=== PATIENT | female | born 1995 | race Asian ===

== ENCOUNTER 2019-06-12 04:48 | Emergency (ER) | payer SELFPAY ==
--- NOTE | 2019-06-12 06:07 | ED ---
Skin Complaint - HPI Summary HPI Summary: This pt is a 24 Y/O F presenting to [facility] with a CC of an allergic reaction that started between 0400 and 0500 06/12/19. She had a generalized burning sensation and was unable to determine a cause of the rash. She states that she works at [employer]. She denies eating anything new, fevers, chills, N/V, SOB, CP, and headaches. She states that the hives encompassed all of her body. She denies any pain associated with the hives. She states that she was using new laundry detergent today but states that she had a similar symptomology on but states that the episode was only 2 hours and she did not think much of it. She denies any pertinent PMHx and any aggravating or alleviating factors. - History of Current Complaint Chief Complaint: EDAllergicReaction Time Seen by Provider: 06/12/19 05:48 Stated Complaint: ALLERGIES PER PT Hx Obtained From: Patient Onset/Duration: Started Hours Ago - 4-5, Still Present Skin Exposure Onset/Duration: Hours Ago - 4-5 Timing: Constant Current Severity: None Pain Intensity: 0 Pain Scale Used: 0-10 Numeric Skin Location: Diffuse Character: Hives Aggravating Symptom(s): Nothing Alleviating Symptom(s): Nothing Associated Signs & Symptoms: Negative - fevers, chills, N/V, SOB, CP, and headaches - Allergy/Home Medications Allergies/Adverse Reactions: Allergies Allergy/AdvReac Type Severity Reaction Status Date / Time No Known Allergies Allergy Verified 06/12/19 04:50 Home Medications: Home Medications NK [No Home Medications Reported] 06/12/19 [History Confirmed 06/12/19] PMH/Surg Hx/FS Hx/Imm Hx Previously Healthy: Yes Endocrine/Hematology History: Denies: Hx Diabetes Cardiovascular History: Denies: Hx Hypertension Respiratory History: Denies: Hx Asthma - Surgical History Surgical History: None - Immunization History Immunizations Up to Date: No Infectious Disease History: No Infectious Disease History: Denies: Traveled Outside the [place] in Last 30 Days - Family History Known Family History: Negative: Cardiac Disease, Hypertension, Diabetes - Social History Occupation: Employed Part-time Lives: With Family Alcohol Use: None Hx Substance Use: No Substance Use Type: Reports: None Hx Tobacco Use: No Smoking Status (MU): Never Smoked Tobacco Household Exposure: No Review of Systems Negative: Fever, Chills Negative: Chest Pain Negative: Shortness Of Breath Negative: Vomiting, Nausea Positive: Rash - hives Negative: Headache All Other Systems Reviewed And Are Negative: Yes Physical Exam - Summary Physical Exam Summary: General: Well-developed, Well-nourished female. No acute distress. HEENT: Normocephalic, Atraumatic. Eyes: Conjuctiva normal, PERRL. Ears: TMs within normal limits. Nares: (-) discharge, (-) erythema. Oropharynx: Clear, mucous membranes moist, (-) exudates. Neck: Soft, FROM, (-) lymphadenopathy, (-) thyromegaly, (-) JVD. Cardiovascular: Normal sinus rhythm, (-) murmur. Lungs: Clear to auscultation bilaterally (-) wheezes, (-) rales, (-) rhonchi. Abdomen: Soft, non-tender, non-distended, (-) organomegaly, normal bowel sounds. Back: (-) CVA tenderness Extremities: No edema. Skin: Warm, dry, (-) rash. Neuro: Alert and oriented x3, no focal deficits. Psychiatric: Mood normal, affect normal. Triage Information Reviewed: Yes Vital Signs On Initial Exam: Initial Vitals Temp Pulse Resp BP Pulse Ox 98.2 F 74 16 112/72 98 06/12/19 04:51 06/12/19 04:51 06/12/19 04:51 06/12/19 04:51 06/12/19 04:51 Vital Signs Reviewed: Yes Procedures - Sedation Patient Received Moderate/Deep Sedation with Procedure: No Diagnostics - Vital Signs Vital Signs Temp Pulse Resp BP Pulse Ox 06/12/19 04:51 98.2 F 74 16 112/72 98 - Laboratory Lab Statement: Any lab studies that have been ordered have been reviewed, and results considered in the medical decision making process. Course/Dx - Course Course Of Treatment: 24-year-old female with itching and hives. Unknown etiology. Patient unable to identify any new products prior to the itching. May be laundry detergent. Advised her to evaluate her itching and try to identify the cause. Benadryl given. May take every 6 hours. Follow-up with PCP. Follow-up sooner for any worsening symptoms. - Diagnoses Provider Diagnoses: Allergic reaction Discharge ED - Sign-Out/Discharge Documenting (check all that apply): Patient Departure - discharge - Discharge Plan Condition: Stable Disposition: HOME Patient Education Materials: Urticaria (ED), Allergies (ED) Referrals: [facility] [Outside] - 2 Days Additional Instructions: PLEASE FOLLOW UP WITH THE [facility] IN 1-3 DAYS AND RETURN TO THE EMERGENCY DEPARTMENT FOR ANY NEW OR WORSENING SYMPTOMS. Take benadryl if the episode happens again. - Billing Disposition and Condition Condition: STABLE Disposition: Home - Attestation Statements Document Initiated by Scribe: Yes Documenting Scribe: Dwain Hutchinson Provider For Whom Scribe is Documenting (Include Credential): Veronica Jenkins MD Scribe Attestation: Dwain Freire, scribed for Veronica Jenkins MD on 06/12/19 at 0633. Scribe Documentation Reviewed: Yes Provider Attestation: The documentation as recorded by the Dwain munoz accurately reflects the service I personally performed and the decisions made by Veronica hooper MD Status of Scribe Document: Viewed
[2019-06-12] MEDS ORDERED: diPHENhydraMINE PO* 50 MG PO ONE (06:14)
[2019-06-12 06:46] VITALS: BP 107/66
== END 2019-06-12 06:34 | disposition home or self-care (01) ==
LOC: ED 04:48
DX: T78.40XA Allergy, unspecified, initial encounter (principal); X58.XXXA Exposure to other specified factors, initial encounter; L50.9 Urticaria, unspecified
CPT/HCPCS: 99282; A9270-GY

== ENCOUNTER 2019-06-14 09:47 | Emergency (ER) | payer SELFPAY ==
[2019-06-14 09:51] VITALS: BP 120/70
--- NOTE | 2019-06-14 10:16 | ED ---
Skin Complaint - HPI Summary HPI Summary: This patient is 24 year old female presenting to [facility] with a chief complaint of hives since 4 days ago. She states they have been intermittent and diffusely spread over her body. She denies any abdominal pain, n/v/d, SOB, or cough. She states today they are on her ears. She was seen in the ER on Friday for the same and has been taking benadryl pills and cream without relief. - History of Current Complaint Chief Complaint: EDRashSkinAbscess Time Seen by Provider: 06/14/19 09:58 Stated Complaint: RASH Hx Obtained From: Patient Onset/Duration: Started Days Ago Timing: Lasting Days Pain Intensity: 2 Pain Scale Used: 0-10 Numeric Skin Location: Diffuse, Ear Character: Hives - Allergy/Home Medications Allergies/Adverse Reactions: Allergies Allergy/AdvReac Type Severity Reaction Status Date / Time No Known Allergies Allergy Verified 06/14/19 09:52 PMH/Surg Hx/FS Hx/Imm Hx Endocrine/Hematology History: Denies: Hx Diabetes Cardiovascular History: Denies: Hx Hypertension Respiratory History: Denies: Hx Asthma Infectious Disease History: No Infectious Disease History: Denies: Traveled Outside the [place] in Last 30 Days - Family History Known Family History: Negative: Cardiac Disease, Hypertension, Diabetes - Social History Alcohol Use: None Hx Substance Use: No Substance Use Type: Reports: None Hx Tobacco Use: No Smoking Status (MU): Never Smoked Tobacco Review of Systems Negative: Fever Positive: Rash - Hives All Other Systems Reviewed And Are Negative: Yes Physical Exam - Summary Physical Exam Summary: Appearance: Well-appearing, Well-nourished, lying in bed comfortably Skin: Warm, dry, Urticharea. Only one lesion present over the right ear which is typical red raised urticarial region. Eyes: sclera anicteric, no conjunctival pallor ENT: mucous membranes moist, pharynx appears normal Neck: Supple, nontender Respiratory: Clear to auscultation, no signs of respiratory distress Cardiovascular: Normal S1, S2. No murmurs. Normal distal pulses in tibial and radial bilaterally. Abdomen: Soft, nontender, normal active bowel sounds present Musculoskeletal: Normal, Strength/ROM Intact Neurological: A&Ox3, awake and alert, mentation is normal, speech is fluent and appropriate Psychiatric: affect is normal, does not appear anxious or depressed Triage Information Reviewed: Yes Vital Signs On Initial Exam: Initial Vitals Temp Pulse Resp BP Pulse Ox 98.2 F 90 14 120/70 100 06/14/19 09:50 06/14/19 09:50 06/14/19 09:50 06/14/19 09:50 06/14/19 09:50 Vital Signs Reviewed: Yes Procedures - Sedation Patient Received Moderate/Deep Sedation with Procedure: No Diagnostics - Vital Signs Vital Signs Temp Pulse Resp BP Pulse Ox 06/14/19 09:50 98.2 F 90 14 120/70 100 - Laboratory Lab Statement: Any lab studies that have been ordered have been reviewed, and results considered in the medical decision making process. Course/Dx - Course Course Of Treatment: This patient is 24 year old female presenting to [facility] with a chief complaint of hives since 4 days ago. Physical exam revealed Urticaria. Only one lesion present over the right ear which is typical red raised urticarial region. The patient was instructed to continue her course of care for another 2 weeks, as urticaria can last for several weeks following reaction, and she was referred to an academic affairs specialist. Other antihistamines that do not have a drousy side effect were recommended if this was causing her problems. A plan for discharge was discussed with the patient and she was agreeable with this plan. - Diagnoses Provider Diagnoses: Urticaria Discharge ED - Sign-Out/Discharge Documenting (check all that apply): Patient Departure - Discharge - Discharge Plan Condition: Good Disposition: HOME Patient Education Materials: Urticaria (ED) Referrals: Frank Purcell MD [Medical Doctor] - Zaid Abreu MD [Medical Doctor] - Bob Bae MD [Medical Doctor] - Additional Instructions: The nature of hives is they wax and wane until the reaction eventually subsides , which generally takes a few days to a week. If they persist past 2 weeks, or recur, it would be helpful to see an academic affairs specialist so they can do the kind of specialized testing we do not do here to find out what is causing it. Benadryl does cause drowsiness, so if you are having trouble with that you can switch to a different antihistamine, such as loratadine or cetirizine, which don 't usually cause much drowsiness. These also have the advantage of having to take less frequently, but are more expensive. Even taking antihistamines, you may continue to have trouble with the hives. - Billing Disposition and Condition Condition: GOOD Disposition: Home - Attestation Statements Document Initiated by Kiran: Yes Documenting Scribe: Mateusz Land Provider For Whom Kiran is Documenting (Include Credential): Miguel Angel Ervin MD Scribe Attestation: I, Mateusz Land, scribed for Miguel Angel Ervin MD on 06/15/19 at 0724. Scribe Documentation Reviewed: Yes Provider Attestation: The documentation as recorded by the Mateusz munoz accurately reflects the service I personally performed and the decisions made by me, Miguel Angel Ervin MD Status of Scribe Document: Viewed
== END 2019-06-14 10:22 | disposition home or self-care (01) ==
LOC: ED 09:47
DX: L50.9 Urticaria, unspecified (principal); R21 Rash and other nonspecific skin eruption
CPT/HCPCS: 99282

== ENCOUNTER 2019-09-25 11:01 | Emergency (ER) | payer SELFPAY ==
[2019-09-25] MEDS ORDERED: Ibuprofen TAB* 600 MG PO ONE (11:44)
[2019-09-25] MEDS ORDERED: Tetan/Diph/Pertus SYR(Tdap)* 0.5 ML SYR(BOOSTRIX) use SYR contains LATEX IM ONE (11:44)
--- NOTE | 2019-09-25 11:50 | ED ---
Skin Complaint - HPI Summary HPI Summary: This patient is a 24 year old F presenting to [facility] accompanied by with a chief complaint of cut on right leg due to broken dish since last night, , Symptoms aggravated by nothing. Symptoms alleviated by nothing. Patient denies any glass in wound and denies mhx. - History of Current Complaint Chief Complaint: EDLacSutureRecheck Time Seen by Provider: 09/25/19 11:36 Stated Complaint: KNEE PAIN FALL Hx Obtained From: Patient Onset/Duration: Started Days Ago, Still Present Timing: Constant Current Severity: Mild Pain Intensity: 6 Pain Scale Used: 0-10 Numeric Skin Location: Leg Aggravating Symptom(s): Nothing Alleviating Symptom(s): Nothing - Allergy/Home Medications Allergies/Adverse Reactions: Allergies Allergy/AdvReac Type Severity Reaction Status Date / Time No Known Allergies Allergy Verified 09/25/19 11:16 PMH/Surg Hx/FS Hx/Imm Hx Endocrine/Hematology History: Denies: Hx Diabetes Cardiovascular History: Denies: Hx Hypertension Respiratory History: Denies: Hx Asthma Infectious Disease History: No Infectious Disease History: Denies: Traveled Outside the [place] in Last 30 Days - Family History Known Family History: Negative: Cardiac Disease, Hypertension, Diabetes - Social History Alcohol Use: None Hx Substance Use: No Substance Use Type: Reports: None Hx Tobacco Use: No Smoking Status (MU): Never Smoked Tobacco Review of Systems Negative: Fever Positive: Other - laceration to the right leg All Other Systems Reviewed And Are Negative: Yes Physical Exam - Summary Physical Exam Summary: Constitutional: Well-developed, Well-nourished, Alert. (-) Distressed Skin: 1 cm laceration to the right leg on the lateral aspect of the leg posterior to knee, full rom in the knee HENT: Normocephalic; Atraumatic Eyes: Conjunctiva normal Neck: Musculoskeletal ROM normal neck. (-) JVD, (-) Stridor, (-) Tracheal deviation Cardio: Rhythm regular, rate normal, Heart sounds normal; Intact distal pulses; Radial pulses are 2+ and symmetric. (-) Murmur Pulmonary/Chest wall: Effort normal. (-) Respiratory distress, (-) Wheezes, (-) Rales Abd: Soft, (-) tenderness, (-) Distension, (-) Guarding, (-) Rebound Musculoskeletal: (-) Edema Lymph: (-) Cervical adenopathy Neuro: Alert, Oriented x3 Psych: Mood and affect Normal Triage Information Reviewed: Yes Vital Signs On Initial Exam: Initial Vitals Temp Pulse Resp BP Pulse Ox 98.4 F 82 19 118/78 100 09/25/19 11:04 09/25/19 11:04 09/25/19 11:04 09/25/19 11:04 09/25/19 11:04 Vital Signs Reviewed: Yes Procedures - Sedation Patient Received Moderate/Deep Sedation with Procedure: No Diagnostics - Vital Signs Vital Signs Temp Pulse Resp BP Pulse Ox 09/25/19 11:04 98.4 F 82 19 118/78 100 - Laboratory Lab Statement: Any lab studies that have been ordered have been reviewed, and results considered in the medical decision making process. Re-Evaluation - Re-Evaluation First Eval Re-Evaluation Time: 12:00 Comment: put steristeps dermabond, continue to ooze blood, offerred to suture but declined Course/Dx - Course Course Of Treatment: Patient is here with a small cut to her leg. Patient had her cut repaired with Dermabond and sisters. Patient continued to have some bleeding and was offered sutures but declined. Patient is given tetanus. - Diagnoses Provider Diagnoses: Leg laceration Discharge ED - Sign-Out/Discharge Documenting (check all that apply): Patient Departure - discharge - Discharge Plan Condition: Stable Disposition: HOME Patient Education Materials: Laceration (ED) Referrals: [facility] [Outside] Additional Instructions: Glue in strip will come off with time. You can wash wound but please be gentle and come back to [facility] if there is surrounding redness, pus coming out, or any other considering symptoms. Take Motrin 600 mg every 6 hrs for pain. - Billing Disposition and Condition Condition: STABLE Disposition: Home - Attestation Statements Document Initiated by Scribe: Yes Documenting Scribe: Tiffanie Seaman Provider For Whom Kiran is Documenting (Include Credential): Dr. Aki Ivory MD Scribe Attestation: Tiffanie Freire, scribed for Dr. Aki Ivory MD on 09/25/19 at 1926. Scribe Documentation Reviewed: Yes Provider Attestation: The documentation as recorded by the Tiffanie munoz accurately reflects the service I personally performed and the decisions made by me, Dr. Aki Ivory MD Status of Scribe Document: Viewed
[2019-09-25 12:46] VITALS: BP 113/69
== END 2019-09-25 12:27 | disposition home or self-care (01) ==
LOC: ED 11:01
DX: S81.811A Laceration without foreign body, right lower leg, initial encounter (principal); Z23 Encounter for immunization; W25.XXXA Contact with sharp glass, initial encounter; Y92.9 Unspecified place or not applicable
CPT/HCPCS: 90471; 90715; 99282; A9270-GY